=== PATIENT | female | born 1980 | race Caucasian/White ===

== ENCOUNTER 2020-09-11 03:54 | Emergency (ER) | payer MEDICAID ==
[~2020-09-11] VITALS: Ht 162.6 cm; Wt 58.5 kg
[2020-09-11 04:03] VITALS: BP 123/82
--- NOTE | 2020-09-11 04:26 | NUR ---
[facility].
--- NOTE | 2020-09-11 04:30 | NUR ---
PATIENT BIB SELF FOR C/O PELVIC PAIN X 1 DAY. PER PATIENT HAD UNPROTECTED SEX WITH PARTNER X 1.5 WEEKS AGO AND NOT HAS FOUL ODOR WITH PELVIC PAIN. PATIENT WOULD LIKE TO R/O STI. MEDHX: TESHA PATRICK
[2020-09-11] MEDS ORDERED: DOXYCYCLINE 100 MG CAP PO STA (04:33)
[2020-09-11] MEDS ORDERED: metroNIDAZOLE 250 MG TAB PO ONE (04:35)
[2020-09-11] MEDS ORDERED: cefTRIAXone 500 MG in LIDOCAINE MPF 1% 1 ML IM ONE (04:35)
[2020-09-11] MEDS ORDERED: METR-435 PO (04:39)
[2020-09-11] MEDS ORDERED: DOXY100C9 PO (04:39)
[2020-09-11] MEDS ORDERED: cefTRIAXone 500 MG VIAL ONE (05:04)
[2020-09-11] MEDS ORDERED: LIDOCAINE MPF 1% 5 ML ONE (05:04)
[2020-09-11 05:27] VITALS: BP 123/82
--- NOTE | 2020-09-11 05:27 | NUR ---
Patient discharged with v/s stable. Written and verbal after care instructions given and explained. Patient alert, oriented and verbalized understanding of instructions. Ambulatory with steady gait. All questions addressed prior to discharge. ID band removed. Patient advised to follow up with PMD. Rx of DOXYCYCLINE, METRONIDAZOLE given. Patient educated on indication of medication including possible reaction and side effects. Opportunity to ask questions provided and answered.
[2020-09-11 06:21] LABS: BILIRUBIN,URINE NEGATIVE (NEGATIVE); BLOOD, URINE NEGATIVE (NEGATIVE); COLOR,URINE YELLOW (YELLOW); LEUKOCYTE ESTERASE ,URINE NEGATIVE (NEGATIVE); NITRITE, URINE NEGATIVE (NEGATIVE); PH,URINE 5.5 (5.0-9.0); UGLUCOSE NEGATIVE (NEGATIVE)
[2020-09-11 07:12] LABS: APPEARANCE,URINE HAZY (CLEAR)
== END 2020-09-11 05:27 | disposition home or self-care (01) ==
LOC: MED 03:54
DX: R10.9 Unspecified abdominal pain (principal); F17.200 Nicotine dependence, unspecified, uncomplicated; Z11.3 Encounter for screening for infections with a predominantly sexual mode of transmission; Z71.6 Tobacco abuse counseling
CPT/HCPCS: 36415; 81003; 87490; 96372; 99283; J0696; J2001

== ENCOUNTER 2020-09-24 15:07 | Emergency (ER) | payer MEDICAID ==
[~2020-09-24] VITALS: Ht 167.6 cm; Wt 57.6 kg
[~2020-09-24 15:07] MED LIST: DOXY100C9 PO; METR-435 PO
[2020-09-24 15:28] VITALS: BP 123/85
--- NOTE | 2020-09-24 15:32 | NUR ---
PT TO LOBBY.
--- NOTE | 2020-09-24 16:59 | NUR ---
PT CALLED IN LOBBY, NO ANSWER.
--- NOTE | 2020-09-24 17:09 | NUR ---
PT CALLED IN LOBBY FOR SECOND TIME, NO ANSWER.
--- NOTE | 2020-09-24 17:19 | NUR ---
PATIENT CALLED FOR THIRD TIME, WAS NOT WAITING IN LOBBY. ERMD MADE AWARE PT LEFT
[2020-09-24] MEDS ORDERED: MICO15CR VG (21:48)
[2020-09-24] MEDS ORDERED: PHEN-1877 PO (21:48)
== END 2020-09-24 17:19 | disposition left against medical advice (07) ==
LOC: MED 15:07
DX: R10.9 Unspecified abdominal pain (principal); Z53.21 Procedure and treatment not carried out due to patient leaving prior to being seen by health care provider

== ENCOUNTER 2020-09-24 19:17 | Emergency (ER) | payer MEDICAID ==
[~2020-09-24] VITALS: Ht 167.6 cm; Wt 56.7 kg
[2020-09-24 19:24] VITALS: BP 101/66
--- NOTE | 2020-09-24 19:30 | NUR ---
PT AMBULATED TO LOBBY WITH STEADY AND EVEN GAIT.
[2020-09-24 19:39] LABS: APPEARANCE,URINE HAZY (CLEAR); BILIRUBIN,URINE NEGATIVE (NEGATIVE); BLOOD, URINE NEGATIVE (NEGATIVE); COLOR,URINE YELLOW (YELLOW); LEUKOCYTE ESTERASE ,URINE NEGATIVE (NEGATIVE); NITRITE, URINE NEGATIVE (NEGATIVE); UGLUCOSE NEGATIVE (NEGATIVE)
--- NOTE | 2020-09-24 19:42 | NUR ---
CONFIRMED PTS URINE IN LAB AND EMT TO RETRIEVE.
--- NOTE | 2020-09-24 20:10 | NUR ---
Saurav saab in [facility] - 09/24/20 at 2022 by [email or web address] PT AMBULATED TO BED 05.
--- NOTE | 2020-09-24 20:10 | NUR ---
PT AMBULATED TO BED 06.
--- NOTE | 2020-09-24 20:30 | NUR ---
PT. IS A 40 Y/O FEMALE THAT CAME INTO ED WITH C/O OF FLANK PAIN. PT. STATES THAT THE PAIN IS IN HER LOWER TRUNK THAT STARTED YESTERDAY. PT. ALSO STATES "I THINK I HAVE A KIDNEY INFECTION." PT. RATES PAIN 8/10 ON THE PAIN SCALE AT THIS TIME. DENIES N/V/D/FEVER. PT. ALSO STATES THAT SHE IS CONSTIPATED. SKIN IS PINK/WARM/DRY; AAOX4 WITH EVEN AND STEADY GAIT; HR EVEN AND REGULAR; PT DENIES ANY FEVER, CP, SOB, OR COUGH AT THIS TIME; VSS; PATIENT POSITIONED FOR COMFORT; HOB ELEVATED; BEDRAILS UP X2; BED DOWN. ER MD MADE AWARE OF PT STATUS. PMH: DENIES ALLERGIES: NKA
--- NOTE | 2020-09-24 20:37 | NUR ---
RADHA PRESSLEY AT BEDSIDE FOR MEDICAL EXAMINATION
[2020-09-24] MEDS ORDERED: KETOROLAC 30 MG/ML VIAL IM ONE (20:45)
[2020-09-24 21:06] LABS: ANION GAP 8.2 (8-16); CARBON DIOXIDE 29.8 mmol/L (21-32); CREATININE 0.9 mg/dL (0.6-1.3)
[2020-09-24] MEDS ORDERED: MICO15CR VG (21:48)
[2020-09-24] MEDS ORDERED: PHEN-1877 PO (21:48)
[2020-09-24 21:51] VITALS: BP 101/66
--- NOTE | 2020-09-24 21:51 | NUR ---
Patient discharged with v/s stable. Written and verbal after care instructions given and explained. Patient alert, oriented and verbalized understanding of instructions. Ambulatory with steady gait. All questions addressed prior to discharge. ID band removed. Patient advised to follow up with PMD. Rx of MONISDTAT AND PYRIDIUM given. Patient educated on indication of medication including possible reaction and side effects. Opportunity to ask questions provided and answered.
== END 2020-09-24 21:51 | disposition home or self-care (01) ==
LOC: MED 19:17
DX: R10.9 Unspecified abdominal pain (principal); B37.9 Candidiasis, unspecified; Z79.899 Other long term (current) drug therapy
CPT/HCPCS: 36415; 80048; 81003; 81025; 96372; 99283; J1885

== ENCOUNTER 2022-04-15 06:27 | Emergency (ER) | payer MEDICAID ==
[~2022-04-15] VITALS: Ht 167.6 cm; Wt 61.2 kg
[~2022-04-15 06:27] MED LIST changes: -DOXY100C9 PO; +MICO15CR VG; +PHEN-1877 PO; +VIB100 PO
[2022-04-15 06:30] VITALS: BP 141/63
[2022-04-15] MEDS ORDERED: IBUP-2213 PO (07:13)
[2022-04-15] MEDS ORDERED: CLIN300C73 PO (07:13)
[2022-04-15 07:57] VITALS: BP 141/63
== END 2022-04-15 07:57 | disposition home or self-care (01) ==
LOC: MED 06:27
DX: L02.211 Cutaneous abscess of abdominal wall (principal); L03.311 Cellulitis of abdominal wall
CPT/HCPCS: 99283